=== PATIENT | male | born 1955 | race Caucasian/White ===

== ENCOUNTER 2018-03-12 11:51 | Outpatient (CLI) | END 2018-03-12 11:52 | disposition home or self-care (01) | LOC: FCC-LAB 11:51 | PROVIDERS: ATTEND Family Medicine | DX: E03.9 Hypothyroidism, unspecified (principal); I10 Essential (primary) hypertension; E78.2 Mixed hyperlipidemia; D64.9 Anemia, unspecified | CPT/HCPCS: 36415; 80053; 80061; 84443; 85025 ==